=== PATIENT | male | born 1955 | race Caucasian/White ===

== ENCOUNTER 2019-01-09 11:33 | Emergency (ER) | payer BC ==
[~2019-01-09] VITALS: Ht 167.6 cm; Wt 90.7 kg
[2019-01-09 11:47] VITALS: Ht 167.6 cm; Wt 90.7 kg
[2019-01-09 13:58] LABS: BASOPHIL % 0.5 % (0-2); PLATELET COUNT 341 x10^3mcL (130-400); RED CELL DISTRIBUTION WIDTH 14.2 % (11.5-14.5)
[2019-01-09 14:03] LABS: CALCIUM 9.8 mg/dL (8.5-10.1); CARBON DIOXIDE 28.2 mmol/L (21-32); CREATININE SERUM 1.8 mg/dL (0.7-1.3); POTASSIUM SERUM 4.2 mmol/L (3.5-5.1)
[2019-01-09 14:07] LABS: BILIRUBIN TOTAL 0.3 mg/dL (0.20-1.00); TOTAL PROTEIN, SERUM 6.9 g/dL (6.4-8.2)
[2019-01-09 15:20] VITALS: BP 130/75
[2019-01-09 15:35] LABS: microscopic required? YES; urine erythrocyte 2+ (NEGATIVE)
== END 2019-01-09 15:20 | disposition home or self-care (01) ==
LOC: ED 11:33
PROVIDERS: Specialist
DX: D68.9 Coagulation defect, unspecified (principal); N39.0 Urinary tract infection, site not specified; K64.4 Residual hemorrhoidal skin tags; E11.9 Type 2 diabetes mellitus without complications; I48.91 Unspecified atrial fibrillation
CPT/HCPCS: 36415